=== PATIENT | female | born 1970 | race African-American/Black ===

== ENCOUNTER 2020-04-23 16:37 | Inpatient (IN) | payer OTHER ==
[~2020-04-23] VITALS: Ht 175.3 cm; Wt 62.6 kg
[2020-04-23] VITALS (11 sets, daily range): BP systolic 103–131; BP diastolic 6–71
[2020-04-23 17:29] LABS: ANION GAP 19 mmol/L (8-16); CALCIUM, TOTAL 10.2 mg/dL (8.8-10.5); CARBON DIOXIDE 19 mmol/L (22-29); CHLORIDE 116 mmol/L (98-107); CREATININE 1.13 mg/dL (0.60-1.30); GLOMERULAR FILTR. RATE CALC > 60 mL/min (>60); GLUCOSE,RANDOM 141 mg/dL (70-110); POTASSIUM 3.5 mmol/L (3.5-5.1); SODIUM SERUM 154 mmol/L (136-145); UREA NITROGEN, BLOOD 27 mg/dL (7-18)
[2020-04-23 17:44] LABS: ALANINE AMINOTRANSFERASE 2359 U/L (12-78); ALBUMIN 3.1 g/dL (3.4-5.0); ALKALINE PHOSPHATASE 65 U/L (46-116); TOTAL PROTEIN, SERUM 7.9 g/dL (6.4-8.2)
[2020-04-23 17:47] LABS: ASPARTATE AMINOTRANSFERASE 1438 U/L (15-37)
[2020-04-23 18:00] LABS: BASOPHILS % (AUTO) 0.2 % (0.0-2.0); EOSINOPHILS % (AUTO) 0.1 % (1.0-6.0); LYMPHOCYTES # (AUTO) 0.6 K/uL (1.0-4.8); LYMPHOCYTES % (AUTO) 7.3 % (22.0-44.0); MEAN CORPUSCULAR HEMOGLOBIN 17.6 pg (26.0-34.0); MEAN CORPUSCULAR HGB CONC 28.1 G/dL (31.0-37.0); MEAN CORPUSCULAR VOLUME 63 fL (80-100); MONOCYTES # (AUTO) 0.6 K/uL (0.1-1.0); MONOCYTES % (AUTO) 7.4 % (2.0-9.0); NEUTROPHILS # (AUTO) 7.4 K/uL (1.8-7.7); PLATELET COUNT (AUTO) 275 K/uL (150-450); RED BLOOD CELL COUNT(AUTO) 0.83 MIL/uL (4.00-5.20); RED CELL DISTRIBUTION WIDTH 24.8 % (11.5-14.5)
[2020-04-23 18:08] LABS: RETICULOCYTE % (AUTO) 1.8 % (0.5-2.3)
[2020-04-23 18:12] LABS: HEMATOCRIT 5.2 % (36-46); HEMOGLOBIN 1.5 g/dL (12.0-16.0)
[2020-04-23 18:13] LABS: HEMOGLOBIN 1.4 g/dL (12.0-16.0)
[2020-04-23 18:14] LABS: HEMATOCRIT 5.2 % (36-46)
[2020-04-23] MEDS ORDERED: DiphenhydrAMINE HCL 25 MG CAPSULE PO ONE (18:30)
[2020-04-23] MEDS ORDERED: 0.9% SODIUM CHLORIDE 10 ML SYRINGE IVP PRN ×2 (18:30→21:00)
[2020-04-23] MEDS ORDERED: ACETAMINOPHEN 500 MG TABLET PO ONE (18:30)
[2020-04-23] MEDS ORDERED: ACETAMINOPHEN 325 MG TABLET PO PRN (18:30)
[2020-04-23] MEDS ORDERED: ONDANSETRON HCL 4 MG/2 ML VIAL IVP PRN ×2 (18:30→21:00)
[2020-04-23 18:35] LABS: % IRON SATURATION 4.6 % (22-44); FREE T4 (FREE THYROXINE) 1.03 ng/dL (0.76-1.46); MAGNESIUM 2.8 mg/dL (1.80-2.40); THYROID STIMULATING HORMONE 2.41 uIU/mL (0.36-3.74)
[2020-04-23] MEDS ORDERED: FUROSEMIDE 20 MG/2 ML VIAL IVP ONE (19:00)
[2020-04-23] MEDS ORDERED: DEXTROSE 5%-WATER 1,000 ML IV ONE ×2 (19:00→19:15)
[2020-04-23 19:01] LABS: LACTIC ACID 6.3 mmol/L (0.4-2.0)
[2020-04-23] MEDS ORDERED: SODIUM CHLORIDE 0.9% 100 ML ONE (19:11)
[2020-04-23] MEDS ORDERED: IOVERSOL 350 MG/ML 100 ML VIAL ONE (19:12)
[2020-04-23] MEDS ORDERED: OXYGEN THERAPY IH SCH (20:00)
[2020-04-23 21:19] LABS: HEMATOCRIT 14.6 % (36-46); HEMOGLOBIN 4.7 g/dL (12.0-16.0)
[2020-04-23] MEDS ORDERED: SODIUM CHLORIDE 0.9% 250 ML IV ONE (22:00)
[2020-04-23] MEDS ORDERED: MAGNESIUM SULFATE 2 GM, MVI, ADULT NO.1 WITH VIT K 10 ML, THIAMINE 100 MG, FOLIC ACID 1... IV SCH ×5 (23:00)
[2020-04-24] VITALS (19 sets, daily range): BP systolic 109–135; BP diastolic 55–90
[2020-04-24] MEDS ORDERED: SODIUM CHLORIDE 0.9% 250 ML IV ONE (02:17)
[2020-04-24] MEDS ORDERED: SODIUM CHLORIDE 0.9% 100 ML ONE (04:51)
[2020-04-24 08:59] LABS: BASOPHILS % (AUTO) 0.2 % (0.0-2.0); EOSINOPHILS % (AUTO) 0.2 % (1.0-6.0); HEMATOCRIT 24.1 % (36-46); HEMOGLOBIN 8.3 g/dL (12.0-16.0); LYMPHOCYTES # (AUTO) 0.6 K/uL (1.0-4.8); LYMPHOCYTES % (AUTO) 6.7 % (22.0-44.0); MEAN CORPUSCULAR HEMOGLOBIN 28.3 pg (26.0-34.0); MEAN CORPUSCULAR HGB CONC 34.3 G/dL (31.0-37.0); MEAN CORPUSCULAR VOLUME 82 fL (80-100); MONOCYTES # (AUTO) 0.8 K/uL (0.1-1.0); MONOCYTES % (AUTO) 8.9 % (2.0-9.0); NEUTROPHILS # (AUTO) 7.8 K/uL (1.8-7.7); PLATELET COUNT (AUTO) 169 K/uL (150-450); RED BLOOD CELL COUNT(AUTO) 2.93 MIL/uL (4.00-5.20); RED CELL DISTRIBUTION WIDTH 19.2 % (11.5-14.5)
[2020-04-24 09:15] LABS: ALANINE AMINOTRANSFERASE 1774 U/L (12-78); ALBUMIN 2.6 g/dL (3.4-5.0); ALKALINE PHOSPHATASE 60 U/L (46-116); ASPARTATE AMINOTRANSFERASE 732 U/L (15-37); BILIRUBIN,TOTAL 2.4 mg/dL (0.1-1.0); TOTAL PROTEIN, SERUM 6.7 g/dL (6.4-8.2)
[2020-04-24 11:21] LABS: ANION GAP 9 mmol/L (8-16); CALCIUM, TOTAL 8.8 mg/dL (8.8-10.5); CARBON DIOXIDE 23 mmol/L (22-29); CHLORIDE 114 mmol/L (98-107); CREATININE 0.66 mg/dL (0.60-1.30); GLOMERULAR FILTR. RATE CALC > 60 mL/min (>60); GLUCOSE,RANDOM 105 mg/dL (70-110); SODIUM SERUM 146 mmol/L (136-145); UREA NITROGEN, BLOOD 16 mg/dL (7-18)
[2020-04-24 11:25] LABS: PHOSPHORUS 1.8 mg/dL (2.5-4.9)
[2020-04-24] MEDS ORDERED: POTASSIUM PHOS,M-BASIC-D-BASIC 30 MMOL in DEXTROSE 5%-WATER 250 ML IV ONE (13:00)
[2020-04-24] MEDS: IRON SUCROSE COMPLEX 100 MG in SODIUM CHLORIDE 0.9% 100 ML IV SCH (19:50)
[2020-04-25 00:14] VITALS: BP 118/69
[2020-04-25 05:30] VITALS: BP 113/61
[2020-04-25 06:54] LABS: BASOPHILS % (AUTO) 0.4 % (0.0-2.0); EOSINOPHILS % (AUTO) 0.9 % (1.0-6.0); HEMATOCRIT 25.8 % (36-46); HEMOGLOBIN 8.9 g/dL (12.0-16.0); LYMPHOCYTES # (AUTO) 0.8 K/uL (1.0-4.8); LYMPHOCYTES % (AUTO) 8.7 % (22.0-44.0); MEAN CORPUSCULAR HEMOGLOBIN 28.2 pg (26.0-34.0); MEAN CORPUSCULAR HGB CONC 34.6 G/dL (31.0-37.0); MEAN CORPUSCULAR VOLUME 81 fL (80-100); MONOCYTES % (AUTO) 11.5 % (2.0-9.0); NEUTROPHILS # (AUTO) 7.1 K/uL (1.8-7.7); NEUTROPHILS % (AUTO) 78.5 % (40.0-70.0); PLATELET COUNT (AUTO) 132 K/uL (150-450); RED BLOOD CELL COUNT(AUTO) 3.16 MIL/uL (4.00-5.20); RED CELL DISTRIBUTION WIDTH 20.3 % (11.5-14.5)
[2020-04-25 07:15] LABS: ALANINE AMINOTRANSFERASE 1253 U/L (12-78); ALBUMIN 2.3 g/dL (3.4-5.0); ALKALINE PHOSPHATASE 61 U/L (46-116); ANION GAP 5 mmol/L (8-16); ASPARTATE AMINOTRANSFERASE 332 U/L (15-37); BILIRUBIN,TOTAL 2.2 mg/dL (0.1-1.0); CALCIUM, TOTAL 8.6 mg/dL (8.8-10.5); CARBON DIOXIDE 28 mmol/L (22-29); CHLORIDE 107 mmol/L (98-107); CREATININE 0.61 mg/dL (0.60-1.30); GLOMERULAR FILTR. RATE CALC > 60 mL/min (>60); GLUCOSE,RANDOM 101 mg/dL (70-110); PHOSPHORUS 2.2 mg/dL (2.5-4.9); SODIUM SERUM 140 mmol/L (136-145); TOTAL PROTEIN, SERUM 6.1 g/dL (6.4-8.2); UREA NITROGEN, BLOOD 7 mg/dL (7-18)
[2020-04-25 07:16] LABS: POTASSIUM 2.7 mmol/L (3.5-5.1)
[2020-04-25] MEDS ORDERED: POTASSIUM CHLORIDE 20 MEQ ER TABLET PO PRN (07:45)
[2020-04-25] MEDS ORDERED: POTASSIUM CHL 10 MEQ/WATER 50 ML IV PRN (07:45)
[2020-04-25 07:48] VITALS: BP 117/63
[2020-04-25] MEDS ORDERED: GADOBUTROL 1 MMOL/ML 10 ML VIAL IVP ONE (08:20)
[2020-04-25] MEDS ORDERED: POTASSIUM CHLORIDE 20 MEQ ER TABLET PO ONE (10:15)
[2020-04-25 11:25] VITALS: BP 117/64
[2020-04-25 15:26] VITALS: BP 126/53
[2020-04-25] MEDS ORDERED: SODIUM CHLORIDE 0.9% 250 ML IV ONE (18:21)
[2020-04-25] MEDS: IRON SUCROSE COMPLEX 100 MG in SODIUM CHLORIDE 0.9% 100 ML IV SCH (18:26)
[2020-04-25 19:47] VITALS: BP 115/71
[2020-04-25 21:22] LABS: ANION GAP 3 mmol/L (8-16); CALCIUM, TOTAL 8.4 mg/dL (8.8-10.5); CARBON DIOXIDE 28 mmol/L (22-29); CHLORIDE 105 mmol/L (98-107); CREATININE 0.57 mg/dL (0.60-1.30); GLOMERULAR FILTR. RATE CALC > 60 mL/min (>60); GLUCOSE,RANDOM 173 mg/dL (70-110); POTASSIUM 3.3 mmol/L (3.5-5.1); SODIUM SERUM 136 mmol/L (136-145); UREA NITROGEN, BLOOD 6 mg/dL (7-18)
[2020-04-26] VITALS (13 sets, daily range): BP systolic 108–129; BP diastolic 65–81
[2020-04-26 06:45] LABS: BASOPHILS % (AUTO) 0.5 % (0.0-2.0); EOSINOPHILS % (AUTO) 0.7 % (1.0-6.0); HEMATOCRIT 29.8 % (36-46); LYMPHOCYTES % (AUTO) 11.5 % (22.0-44.0); MEAN CORPUSCULAR HEMOGLOBIN 27.5 pg (26.0-34.0); MEAN CORPUSCULAR HGB CONC 33.6 G/dL (31.0-37.0); MEAN CORPUSCULAR VOLUME 82 fL (80-100); MONOCYTES % (AUTO) 11.6 % (2.0-9.0); NEUTROPHILS # (AUTO) 6.6 K/uL (1.8-7.7); NEUTROPHILS % (AUTO) 75.7 % (40.0-70.0); PLATELET COUNT (AUTO) 127 K/uL (150-450); RED BLOOD CELL COUNT(AUTO) 3.63 MIL/uL (4.00-5.20); RED CELL DISTRIBUTION WIDTH 20.7 % (11.5-14.5)
[2020-04-26 06:53] LABS: ANION GAP 6 mmol/L (8-16); CALCIUM, TOTAL 9.2 mg/dL (8.8-10.5); CARBON DIOXIDE 25 mmol/L (22-29); CHLORIDE 107 mmol/L (98-107); CREATININE 0.54 mg/dL (0.60-1.30); GLOMERULAR FILTR. RATE CALC > 60 mL/min (>60); GLUCOSE,RANDOM 111 mg/dL (70-110); POTASSIUM 3.5 mmol/L (3.5-5.1); SODIUM SERUM 138 mmol/L (136-145); UREA NITROGEN, BLOOD 5 mg/dL (7-18)
[2020-04-26 06:58] LABS: INR 1.3 (0.9-1.1); PROTHROMBIN TIME 13.3 SEC (9.4-11.6)
[2020-04-26] MEDS ORDERED: SODIUM BICARBONATE 50 MEQ/50 ML VIAL ONE (08:17)
[2020-04-26] MEDS ORDERED: IOHEXOL 300 MG/ML 150 ML VIAL ONE (08:17)
[2020-04-26] MEDS ORDERED: LIDOCAINE/PF 1% 30 ML VIAL ONE (08:17)
[2020-04-26] MEDS ORDERED: HEPARIN SODIUM 1000 UNITS/NS 1,000 ML ONE (08:17)
[2020-04-26] MEDS ORDERED: MIDAZOLAM HCL 2 MG/2 ML VIAL ONE (09:19)
[2020-04-26] MEDS ORDERED: FentaNYL CITRATE-PF 100 MCG/2 ML VIAL ONE (09:19)
[2020-04-26] MEDS ORDERED: VERAPAMIL HCL 2.5 MG/ML 2 ML VIAL ONE (09:30)
[2020-04-26] MEDS ORDERED: NITROGLYCERIN 50 MG/D5% WATER 0 ML ONE (09:31)
[2020-04-26] MEDS ORDERED: SODIUM,POTASSIUM PHOSPHATES POWDER PACKET PO SCH (10:00)
[2020-04-26] MEDS ORDERED: HEPARIN SODIUM 1000 UNITS/NS 1,000 ML IARTER ONE (10:02)
[2020-04-26] MEDS ORDERED: LIDOCAINE 1% 30 ML/SOD BICARB 8.4% 4 ML SQ ONE (10:15)
[2020-04-26] MEDS ORDERED: FentaNYL CITRATE-PF 100 MCG/2 ML VIAL IVP ONE (10:15)
[2020-04-26] MEDS ORDERED: MIDAZOLAM HCL 2 MG/2 ML VIAL IVP ONE (10:15)
[2020-04-26] MEDS ORDERED: IOHEXOL 300 MG/ML 150 ML VIAL IARTER ONE (10:15)
[2020-04-26] MEDS ORDERED: FERR-82 PO (15:10)
[2020-04-26] MEDS ORDERED: DOCU100C33 PO (15:10)
== END 2020-04-26 16:00 | disposition home or self-care (01) | DRG 760 ==
LOC: EMS 16:40 → 5S 20:00
PROVIDERS: ADMIT Internal Medicine; ATTEND Internal Medicine
PROC: 30233N1 Transfusion of Nonautologous Red Blood Cells into Peripheral Vein, Percutaneous Approach (ICD-10-PCS; 2020-04-23)
PROC: 4A023N7 Measurement of Cardiac Sampling and Pressure, Left Heart, Percutaneous Approach (ICD-10-PCS; principal; 2020-04-26)
PROC: B2111ZZ Fluoroscopy of Multiple Coronary Arteries using Low Osmolar Contrast (ICD-10-PCS; 2020-04-26)
PROC: B2151ZZ Fluoroscopy of Left Heart using Low Osmolar Contrast (ICD-10-PCS; 2020-04-26)
PROC: B41F1ZZ Fluoroscopy of Right Lower Extremity Arteries using Low Osmolar Contrast (ICD-10-PCS; 2020-04-26)
DX: D25.9 Leiomyoma of uterus, unspecified (principal); E43 Unspecified severe protein-calorie malnutrition; I24.9 Acute ischemic heart disease, unspecified; E87.0 Hyperosmolality and hypernatremia; E87.2 Acidosis; N13.30 Unspecified hydronephrosis; N17.9 Acute kidney failure, unspecified; F32.2 Major depressive disorder, single episode, severe without psychotic features; N93.9 Abnormal uterine and vaginal bleeding, unspecified; N92.1 Excessive and frequent menstruation with irregular cycle; D50.9 Iron deficiency anemia, unspecified; I50.9 Heart failure, unspecified; E87.6 Hypokalemia; Z68.20 Body mass index [BMI] 20.0-20.9, adult; D50.0 Iron deficiency anemia secondary to blood loss (chronic); Z87.891 Personal history of nicotine dependence; F32.9 Major depressive disorder, single episode, unspecified; I73.9 Peripheral vascular disease, unspecified; R74.0 Nonspecific elevation of levels of transaminase and lactic acid dehydrogenase [LDH]; N92.0 Excessive and frequent menstruation with regular cycle; Z20.828 Contact with and (suspected) exposure to other viral communicable diseases
CPT/HCPCS: 72197; 74177; 76830; 76856; 80074; 83540; 83550; 83605; 83735; 84100; 84134; 84425; 84439; 84443; 85014; 85018; 85045; 86850; 86900; 86901; 86923; 93005; 93306; 99291; A9585; G0378; G0480; G0481; J1644; J1756; J1940; J2250; J3010; J3411; J3475; J3490; J7030; J7050; J7060; P9016; Q9967; 36415-L1; 36415-TC; 71045-TC; 80076-TC; 87635; Z7610